=== PATIENT | male | born 1965 | race Caucasian/White ===

== ENCOUNTER 2017-07-24 14:01 | Emergency (ER) | payer BC ==
[2017-07-24] MEDS ORDERED: Sodium Chloride 0.9% 10 ML Syringe FLUSH PRN (14:30)
--- NOTE | 2017-07-24 15:07 | CR ---
Chest: Frontal view of the chest was obtained. Comparison: No previous study. Heart size and mediastinum are normal. Lungs are clear. Bony structures are unremarkable. Impression: 1. Nothing acute is identified on frontal chest x-ray. Diagnostic code #1
--- NOTE | 2017-07-24 17:20 | EDM.PDOC ---
ED HPI GENERAL MEDICAL PROBLEM - General Chief Complaint: Chest Pain Stated Complaint: HEARTBURN/NOT FEELING WELL Time Seen by Provider: 07/24/17 14:15 Source of Information: Reports: Patient, RN Notes Reviewed - History of Present Illness INITIAL COMMENTS - FREE TEXT/NARRATIVE: 51 year old male comes in after onset of chest achiness, tightness that started last evening, continues today. He has been having this off and on for about 2 years but worse than usual today. He has had several ED visits in the last 3 months, the last 2 week ago back home, workups have all been neg. He had a 4 days admission back home in [place] about 3 months ago. Has had cardiac stress test, numerous EKGs, labs, cardiac US, CT Angio all of which have been normal. He does not smoke, no personal hx of Htn, diabetes or hyperlipidemia. He has been told his sx are due to GERD, on prilosec for that. He is concerned today because of nonspecific dizziness, feeling of fatigue that he does not feel he should have with just GERD. Chest Pain Score (Numeric/FACES): 6 - Related Data Allergies Allergy/AdvReac Type Severity Reaction Status Date / Time No Known Allergies Allergy Verified 07/24/17 14:09 Home Meds: Home Meds Omeprazole Magnesium [Prilosec Otc] 20 mg PO DAILY 07/24/17 [History] Past Medical History - Past Health History Medical/Surgical History: Denies Medical/Surgical History Social & Family History - Tobacco Use Smoking Status *Q: Never Smoker - Recreational Drug Use Recreational Drug Use: No ED ROS GENERAL - Review of Systems Review Of Systems: See Below Constitutional: Reports: Fatigue. Denies: Fever, Chills, Diaphoresis HEENT: Reports: No Symptoms Respiratory: Denies: Shortness of Breath, Wheezing, Pleuritic Chest Pain, Cough Cardiovascular: Reports: Chest Pain, Lightheadedness. Denies: Palpitations, Syncope GI/Abdominal: Denies: Abdominal Pain, Nausea, Vomiting Musculoskeletal: Denies: Neck Pain, Shoulder Pain, Arm Pain, Back Pain Skin: Denies: Rash Neurological: Reports: Dizziness. Denies: Numbness, Tingling, Weakness ED EXAM, GENERAL - Physical Exam Exam: See Below General Appearance: Alert, No Apparent Distress Eye Exam: Bilateral Eye: PERRL Throat/Mouth: Normal Inspection Head: Atraumatic. No: Facial Swelling Neck: Supple, Full Range of Motion Respiratory/Chest: No Respiratory Distress, Lungs Clear, Normal Breath Sounds, Chest Non-Tender Cardiovascular: Regular Rate, Rhythm GI/Abdominal: Soft, Non-Tender. No: Guarding Back Exam: No: CVA Tenderness (L), CVA Tenderness (R) Extremities: Normal Inspection. No: Pedal Edema, Leg Pain Skin Exam: Warm, Dry, Normal Color EKG INTERPRETATION EKG Date: 07/24/17 Rhythm: NSR Holmen: Normal P-Wave: Present QRS: Normal ST-T: Other (there is some t wave flatteninglead III, no st elevation or depression) Course - Vital Signs Last Recorded V/S: Last Vital Signs Temp 98.1 F 07/24/17 14:10 Pulse 70 07/24/17 14:10 Resp 20 07/24/17 17:53 BP 127/83 07/24/17 17:53 Pulse Ox 98 07/24/17 17:53 - Orders/Labs/Meds Orders: Active Orders 24 hr Category Date Time Status EKG Documentation Completion [RC] ASDIRECTED Care 07/24/17 14:10 Active Peripheral IV Care [RC] . DIRECTED Care 07/24/17 14:32 Active Sodium Chloride 0.9% [Saline Flush] Med 07/24/17 14:30 Active 10 ml FLUSH ASDIRECTED PRN Peripheral IV Insertion Adult [OM.PC] Stat Oth 07/24/17 14:32 Ordered EKG 12 Lead [EK] Stat Ther 07/24/17 14:10 Ordered Medication Orders Sodium Chloride (Saline Flush) 10 ml FLUSH ASDIRECTED PRN PRN Reason: Keep Vein Open Last Admin: 07/24/17 14:15 Dose: 10 ml Labs: Laboratory Tests 07/24/17 07/24/17 07/24/17 Range/Units 14:15 14:15 16:36 WBC 9.47 H (4.23-9.07) K/mm3 RBC 5.06 (4.63-6.08) M/mm3 Hgb 15.3 (13.7-17.5) gm/L Hct 44.7 (40.1-51.0) % MCV 88.3 (79.0-92.2) fl MCH 30.2 (25.7-32.2) pg MCHC 34.2 (32.2-35.5) g/dl RDW Std Deviation 42.7 (35.1-43.9) fL Plt Count 190 (163-337) K/mm3 MPV 11.1 (9.4-12.3) fl Neut % (Auto) 74.6 H (34.0-67.9) % Lymph % (Auto) 16.7 L (21.8-53.1) % Runnels % (Auto) 7.4 (5.3-12.2) % Eos % (Auto) 1.1 (0.8-7.0) Baso % (Auto) 0.2 (0.1-1.2) % Neut # (Auto) 7.07 H (1.78-5.38) K/mm3 Lymph # (Auto) 1.58 (1.32-3.57) K/mm3 Runnels # (Auto) 0.70 (0.30-0.82) K/mm3 Eos # (Auto) 0.10 (0.04-0.54) K/mm3 Baso # (Auto) 0.02 (0.01-0.08) K/mm3 Sodium 138 (136-145) mEq/L Potassium 3.7 (3.5-5.1) mEq/L Chloride 98 (98-107) mEq/L Carbon Dioxide 28 (21-32) mEq/L Anion Gap 15.7 H (5-15) BUN 14 (7-18) mg/dL Creatinine 1.0 (0.7-1.3) mg/dL Est Cr Clr Drug Dosing 105.63 mL/min Estimated GFR (MDRD) > 60 (>60) mL/min BUN/Creatinine Ratio 14.0 (14-18) Glucose 105 (74-106) mg/dL Calcium 9.8 (8.5-10.1) mg/dL Total Bilirubin 0.7 (0.2-1.0) mg/dL AST 25 (15-37) U/L ALT 37 (16-63) U/L Alkaline Phosphatase 67 (46-116) U/L Troponin I < 0.017 < 0.017 (0.00-0.056) ng/mL Total Protein 7.6 (6.4-8.2) g/dl Albumin 4.4 (3.4-5.0) g/dl Globulin 3.2 gm/dL Albumin/Globulin Ratio 1.4 (1-2) TSH 3rd Generation (0.358-3.74) uIU/mL 07/24/17 Range/Units 16:44 WBC (4.23-9.07) K/mm3 RBC (4.63-6.08) M/mm3 Hgb (13.7-17.5) gm/L Hct (40.1-51.0) % MCV (79.0-92.2) fl MCH (25.7-32.2) pg MCHC (32.2-35.5) g/dl RDW Std Deviation (35.1-43.9) fL Plt Count (163-337) K/mm3 MPV (9.4-12.3) fl Neut % (Auto) (34.0-67.9) % Lymph % (Auto) (21.8-53.1) % Runnels % (Auto) (5.3-12.2) % Eos % (Auto) (0.8-7.0) Baso % (Auto) (0.1-1.2) % Neut # (Auto) (1.78-5.38) K/mm3 Lymph # (Auto) (1.32-3.57) K/mm3 Runnels # (Auto) (0.30-0.82) K/mm3 Eos # (Auto) (0.04-0.54) K/mm3 Baso # (Auto) (0.01-0.08) K/mm3 Sodium (136-145) mEq/L Potassium (3.5-5.1) mEq/L Chloride (98-107) mEq/L Carbon Dioxide (21-32) mEq/L Anion Gap (5-15) BUN (7-18) mg/dL Creatinine (0.7-1.3) mg/dL Est Cr Clr Drug Dosing mL/min Estimated GFR (MDRD) (>60) mL/min BUN/Creatinine Ratio (14-18) Glucose (74-106) mg/dL Calcium (8.5-10.1) mg/dL Total Bilirubin (0.2-1.0) mg/dL AST (15-37) U/L ALT (16-63) U/L Alkaline Phosphatase (46-116) U/L Troponin I (0.00-0.056) ng/mL Total Protein (6.4-8.2) g/dl Albumin (3.4-5.0) g/dl Globulin gm/dL Albumin/Globulin Ratio (1-2) TSH 3rd Generation 1.475 (0.358-3.74) uIU/mL Meds: Medications Generic Name Dose Route Start Last Admin Trade Name Freq PRN Reason Stop Dose Admin Sodium Chloride 10 ml 07/24/17 14:30 07/24/17 14:15 Saline Flush FLUSH 10 ml ASDIRECTED PRN Administration Keep Vein Open - Re-Assessments/Exams Free Text/Narrative Re-Assessment/Exam: 07/24/17 17:27 Initial trop was neg. 2nd trop has also come back neg., will increase his prilosec. He does not have a provider here in [place], works here 4 wks at a time and than back home for 2 wk breaks. Discharge instr. as documented. Departure - Departure Time of Disposition: 17:34 Disposition: Home, Self-Care 01 Condition: Fair Clinical Impression: Atypical chest pain Instructions: Nonspecific Chest Pain, [id number] Referrals: PCP,Not In Area [Primary Care Provider] - Forms: ED Department Discharge Additional Instructions: Increase prilosec to 40 mg daily. You may take tums, maalox or mylanta as needed for burning chest discomfort. Follow up with Dr Angeles or Dr Joel at our [facility] medical clinic in about 5 to 7 days for recheck. Return to ED as needed if symptoms worsening in any way. - My Orders Last 24 Hours: My Active Orders 07/24/17 14:10 EKG Documentation Completion [RC] ASDIRECTED EKG 12 Lead [EK] Stat 07/24/17 14:30 Sodium Chloride 0.9% [Saline Flush] 10 ml FLUSH ASDIRECTED PRN 07/24/17 14:32 Peripheral IV Care [RC] . DIRECTED Peripheral IV Insertion Adult [OM.PC] Stat - Assessment/Plan Last 24 Hours: My Active Orders 07/24/17 14:10 EKG Documentation Completion [RC] ASDIRECTED EKG 12 Lead [EK] Stat 07/24/17 14:30 Sodium Chloride 0.9% [Saline Flush] 10 ml FLUSH ASDIRECTED PRN 07/24/17 14:32 Peripheral IV Care [RC] . DIRECTED Peripheral IV Insertion Adult [OM.PC] Stat
== END 2017-07-24 17:53 | disposition home or self-care (01) ==
LOC: JD.ED 14:01
DX: R07.89 Other chest pain (principal); K21.9 Gastro-esophageal reflux disease without esophagitis
CPT/HCPCS: 36415; 71045; 80053; 84443; 84484; 85025; 93005; 99285; J7050; 93010; 99284-25